=== PATIENT | male | born 1950 | race Caucasian/White ===

== ENCOUNTER 2018-04-06 06:13 | Emergency (ER) | payer MEDICARE ==
[2018-04-06] MEDS ORDERED: SODIUM CHLORIDE 0.9% 1,000 ML IV STA (06:42)
[2018-04-06] MEDS ORDERED: ONDANSETRON 4 MG/2 ML VIAL IVP STA (06:42)
[2018-04-06 06:54] LABS: Basophils % (A) 0 %; Eosinophils # (A) 0.1 k/uL (0-0.7); Eosinophils % (A) 1 %; HCT 48.8 % (39.0-53.0); HGB 16.2 gm/dL (13.0-17.5); Lymphocytes # (A) 0.9 k/uL (1.0-4.8); Lymphocytes % (A) 7 %; MCH 31.6 pg (25.0-35.0); MCHC 33.1 g/dL (31.0-37.0); MCV 95.5 fL (80.0-100.0); Mean Platelet Volume 7.2; Monocytes # (A) 0.5 k/uL (0-1.0); Monocytes % (A) 4 %; Neutrophils # (A) 10.8 k/uL (1.3-7.7); Neutrophils % (A) 86 %; Platelet Count 283 k/uL (150-450); RBC 5.11 m/uL (4.30-5.90); RDW 12.8 % (11.5-15.5); WBC 12.6 k/uL (3.8-10.6)
[2018-04-06 07:07] LABS: ALT 30 U/L (21-72); AST 34 U/L (17-59); Albumin 4.4 g/dL (3.5-5.0); Alkaline Phosphatase 87 U/L (38-126); Anion Gap 18 mmol/L; Blood Urea Nitrogen 23 mg/dL (9-20); Calcium 9.5 mg/dL (8.4-10.2); Carbon Dioxide 27 mmol/L (22-30); Chloride 98 mmol/L (98-107); Glucose 162 mg/dL (74-99); Lipase 44 U/L (23-300); Sodium 143 mmol/L (137-145); Total Bilirubin 0.8 mg/dL (0.2-1.3); Total Protein 8.4 g/dL (6.3-8.2)
[2018-04-06] MEDS ORDERED: PANTOPRAZOLE 40 MG/10 ML VIAL IVP STA (07:33)
--- NOTE | 2018-04-06 07:46 | ED ---
General Adult HPI - General Chief complaint: Nausea/Vomiting/Diarrhea Stated complaint: Dehydration, vomiting Time Seen by Provider: 04/06/18 07:05 Source: patient, RN notes reviewed Mode of arrival: ambulatory Limitations: no limitations - History of Present Illness Initial comments: 67-year-old male presents for evaluation of vomiting and diarrhea. Patient states that over the past 16 hours he has had vomiting every 2 hours as well as intermittent diarrhea. Patient has been drinking Coca-Cola and has had subsequent black vomiting. Denies any blood in the vomit. Patient was recently diagnosed with sinusitis and is currently on amoxicillin which began 2 days ago. He denies any chest pain or dyspnea. Denies abdominal pain. No known sick contacts. No fever or chills. Patient does have some URI symptoms however these a been present for the past 6 weeks. - Related Data Home Medications Medication Instructions Recorded Confirmed Amoxic-Pot Clav 875-125Mg 1 tab PO BID 04/06/18 04/06/18 [Augmentin 875-125] OLANZapine [ZyPREXA] 2.5 mg PO HS 04/06/18 04/06/18 lamoTRIgine [LaMICtal] See Taper PO DAILY 04/06/18 04/06/18 Previous Rx's Medication Instructions Recorded Omeprazole [PriLOSEC] 20 mg PO AC-BID #60 cap 04/06/18 Allergies Allergy/AdvReac Type Severity Reaction Status Date / Time Iodinated Contrast- Oral and Allergy Anaphylaxis Verified 04/06/18 07:20 IV Dye [Iodinated Contrast Media - IV Dye] latex Allergy Rash/Hives Verified 04/06/18 07:20 Review of Systems ROS Statement: Those systems with pertinent positive or pertinent negative responses have been documented in the HPI. ROS Other: All systems not noted in ROS Statement are negative. Past Medical History Past Medical History: Hypertension History of Any Multi-Drug Resistant Organisms: None Reported Past Surgical History: Appendectomy Additional Past Surgical History / Comment(s): COLONOSCOPY Past Anesthesia/Blood Transfusion Reactions: No Reported Reaction Past Psychological History: Anxiety Smoking Status: Former smoker Past Alcohol Use History: Heavy Past Drug Use History: None Reported General Exam Limitations: no limitations General appearance: alert, in no apparent distress Head exam: Present: atraumatic, normocephalic Eye exam: Present: normal appearance, PERRL Neck exam: Present: normal inspection. Absent: tenderness, meningismus Respiratory exam: Present: normal lung sounds bilaterally. Absent: respiratory distress Cardiovascular Exam: Present: regular rate, normal rhythm GI/Abdominal exam: Present: soft, distended. Absent: tenderness, guarding, rebound Extremities exam: Present: normal inspection, full ROM. Absent: tenderness, normal capillary refill Neurological exam: Present: alert, oriented X3, CN II-XII intact. Absent: motor sensory deficit Psychiatric exam: Present: normal affect, normal mood Skin exam: Present: warm, dry, intact. Absent: cyanosis, diaphoretic Course Vital Signs 04/06/18 04/06/18 04/06/18 06:14 07:00 08:58 Temperature 98.7 F Pulse Rate 99 91 Respiratory 16 18 Rate Blood Pressure 142/93 170/90 132/75 O2 Sat by Pulse 98 97 Oximetry EKG Findings - EKG Comments: EKG Findings:: EKG: Normal sinus rhythm, left atrial enlargement no ST segment elevation or depression. Rate of 90, MO interval 164, QRS duration 90, QTC 472 definitive signs of ischemia. Medical Decision Making - Medical Decision Making 67-year-old male presenting with vomiting and diarrhea. There was concern for dark vomit however the patient had been drinking Coca-Cola. Hemoccult is positive however there is no melanotic stool. This may be related to gastritis. His abdomen is completely soft nontender nondistended. Vital signs are stable. Hemoglobin is stable at 16.2, mild leukocytosis at 12.6. Lactic acid normal. Lipase AST and ALT are all normal. Patient is feeling much better on reevaluation. He is eager for discharge. He will be given proton pump inhibitor and will return with any worsening or changing symptoms. - Lab Data Result diagrams: 04/06/18 06:35 04/06/18 06:35 Lab Results 04/06/18 04/06/18 04/06/18 Range/Units 06:35 06:35 06:35 WBC 12.6 H (3.8-10.6) k/uL RBC 5.11 (4.30-5.90) m/uL Hgb 16.2 (13.0-17.5) gm/dL Hct 48.8 (39.0-53.0) % MCV 95.5 (80.0-100.0) fL MCH 31.6 (25.0-35.0) pg MCHC 33.1 (31.0-37.0) g/dL RDW 12.8 (11.5-15.5) % Plt Count 283 (150-450) k/uL Neutrophils % 86 % Lymphocytes % 7 % Monocytes % 4 % Eosinophils % 1 % Basophils % 0 % Neutrophils # 10.8 H (1.3-7.7) k/uL Lymphocytes # 0.9 L (1.0-4.8) k/uL Monocytes # 0.5 (0-1.0) k/uL Eosinophils # 0.1 (0-0.7) k/uL Basophils # 0.0 (0-0.2) k/uL Sodium 143 (137-145) mmol/L Potassium 4.0 (3.5-5.1) mmol/L Chloride 98 (98-107) mmol/L Carbon Dioxide 27 (22-30) mmol/L Anion Gap 18 mmol/L BUN 23 H (9-20) mg/dL Creatinine 0.90 (0.66-1.25) mg/dL Est GFR (CKD-EPI)AfAm >90 (>60 ml/min/1.73 sqM) Est GFR (CKD-EPI)NonAf 87 (>60 ml/min/1.73 sqM) Glucose 162 H (74-99) mg/dL Plasma Lactic Acid Adelfo 1.0 (0.7-2.0) mmol/L Calcium 9.5 (8.4-10.2) mg/dL Total Bilirubin 0.8 (0.2-1.3) mg/dL AST 34 (17-59) U/L ALT 30 (21-72) U/L Alkaline Phosphatase 87 (38-126) U/L Troponin I (0.000-0.034) ng/mL Total Protein 8.4 H (6.3-8.2) g/dL Albumin 4.4 (3.5-5.0) g/dL Lipase 44 (23-300) U/L Stool Occult Blood (Negative) 04/06/18 04/06/18 Range/Units 06:35 08:29 WBC (3.8-10.6) k/uL RBC (4.30-5.90) m/uL Hgb (13.0-17.5) gm/dL Hct (39.0-53.0) % MCV (80.0-100.0) fL MCH (25.0-35.0) pg MCHC (31.0-37.0) g/dL RDW (11.5-15.5) % Plt Count (150-450) k/uL Neutrophils % % Lymphocytes % % Monocytes % % Eosinophils % % Basophils % % Neutrophils # (1.3-7.7) k/uL Lymphocytes # (1.0-4.8) k/uL Monocytes # (0-1.0) k/uL Eosinophils # (0-0.7) k/uL Basophils # (0-0.2) k/uL Sodium (137-145) mmol/L Potassium (3.5-5.1) mmol/L Chloride (98-107) mmol/L Carbon Dioxide (22-30) mmol/L Anion Gap mmol/L BUN (9-20) mg/dL Creatinine (0.66-1.25) mg/dL Est GFR (CKD-EPI)AfAm (>60 ml/min/1.73 sqM) Est GFR (CKD-EPI)NonAf (>60 ml/min/1.73 sqM) Glucose (74-99) mg/dL Plasma Lactic Acid Adelfo (0.7-2.0) mmol/L Calcium (8.4-10.2) mg/dL Total Bilirubin (0.2-1.3) mg/dL AST (17-59) U/L ALT (21-72) U/L Alkaline Phosphatase (38-126) U/L Troponin I <0.012 (0.000-0.034) ng/mL Total Protein (6.3-8.2) g/dL Albumin (3.5-5.0) g/dL Lipase (23-300) U/L Stool Occult Blood Positive (Negative) Disposition Clinical Impression: Gastroenteritis Disposition: HOME SELF-CARE Condition: Fair Instructions: Acute Nausea and Vomiting (ED) Prescriptions: Omeprazole [PriLOSEC] 20 mg PO AC-BID #60 cap Is patient prescribed a controlled substance at d/c from ED?: No Referrals: Jailene Espinoza DO [Primary Care Provider] - 1-2 days Time of Disposition: 09:31
--- NOTE | 2018-04-06 08:05 | XR ---
EXAMINATION TYPE: XR chest 2V DATE OF EXAM: 04/06/2018 COMPARISON: NONE HISTORY: Cough per order. Vomiting and diarrhea for 2 days. TECHNIQUE: Frontal and lateral views of the chest are obtained. FINDINGS: There is chronic parenchymal change without suspicious focal air space opacity, pleural ef fusion, or pneumothorax seen. The cardiac silhouette size is within normal limits. The osseous str uctures are intact. IMPRESSION: Chronic parenchymal changes without suspicious acute pulmonary process.
--- NOTE | 2018-04-06 08:06 | XR ---
EXAMINATION TYPE: XR KUB DATE OF EXAM: 04/06/2018 7:57 AM CLINICAL HISTORY: Vomiting and diarrhea for 2 days. TECHNIQUE: Two Upright KUB images of the abdomen are obtained. COMPARISON: None. FINDINGS: Scattered gas is seen in non-distended stomach and small bowel loops. Gas is seen in non-di stended colon. Scattered air-fluid levels are seen which is nonspecific finding. There is no viscerom egaly, pneumoperitoneum, or abnormal calcification appreciated. The lung bases are clear and the osse ous structures are intact. IMPRESSION: Overall nonobstructive bowel gas pattern.
[2018-04-06 09:48] VITALS: BP 129/78; PULSE 86; RESP 16; TEMP 97.7
== END 2018-04-06 09:56 | disposition home or self-care (01) ==
LOC: EC 06:13
DX: K52.9 Noninfective gastroenteritis and colitis, unspecified (principal); D72.829 Elevated white blood cell count, unspecified; R14.0 Abdominal distension (gaseous); J32.9 Chronic sinusitis, unspecified; R09.89 Other specified symptoms and signs involving the circulatory and respiratory systems; Z87.891 Personal history of nicotine dependence; Z79.899 Other long term (current) drug therapy; Z91.040 Latex allergy status; Z91.041 Radiographic dye allergy status; Z90.49 Acquired absence of other specified parts of digestive tract
CPT/HCPCS: 36415; 93005; 80053; 83605; 83690; 84484; 85025; 82272; 71046; 74018; 99284; 96374; 96375; 96361; J2405; C9113

== ENCOUNTER 2022-10-23 11:46 | Observation (INO) | payer OTHER, MEDICARE ==
[2022-10-23] MEDS ORDERED: HEPARIN SODIUM 1,000 UN/ML (10ML VL) IV ONE (12:17)
[2022-10-23] MEDS ORDERED: HEPARIN SODIUM 1,000 UN/ML (10ML VL) IV PRN (12:17)
--- NOTE | 2022-10-23 12:17 | ED ---
General Adult HPI - General Chief complaint: Arrhythmia/Palpitations Stated complaint: AFib Time Seen by Provider: 10/23/22 12:03 Source: EMS Mode of arrival: EMS Limitations: no limitations - History of Present Illness Initial comments: 72-year-old male presenting to the emergency department for palpitations. Patient saw his primary care doctor [facility] the [facility] who did her EKG and told him that he had atrial fibrillation and should be evaluated in the emergency department. She denies any active chest pain today however last week he notes about of unprovoked chest pain happened at night that lasted for a few hours which resolved on its own. He admits increased shortness of breath with exertion. He denies any cardiac history,, anticoagulant use. He denies nausea, vomiting, active chest pain, palpitations, abdominal pain. No recent sick co ntacts. - Related Data Home Medications Medication Instructions Recorded Confirmed FLUoxetine HCL [PROzac] 20 mg PO DAILY 10/23/22 10/23/22 Omeprazole [PriLOSEC] 20 mg PO DAILY 10/23/22 10/23/22 Telmisartan [Micardis] 20 mg PO DAILY 10/23/22 10/23/22 Allergies Allergy/AdvReac Type Severity Reaction Status Date / Time Iodinated Contrast Media Allergy Anaphylaxis Verified 10/23/22 13:03 [Iodinated Contrast Media - IV Dye] latex Allergy Rash/Hives Verified 10/23/22 13:03 Review of Systems ROS Statement: Those systems with pertinent positive or pertinent negative responses have been documented in the HPI. ROS Other: All systems not noted in ROS Statement are negative. Past Medical History Past Medical History: Hypertension History of Any Multi-Drug Resistant Organisms: None Reported Past Surgical History: Appendectomy Additional Past Surgical History / Comment(s): COLONOSCOPY Past Anesthesia/Blood Transfusion Reactions: No Reported Reaction Past Psychological History: Anxiety Smoking Status: Former smoker Past Alcohol Use History: Heavy Past Drug Use History: None Reported General Exam Limitations: no limitations General appearance: alert, in no apparent distress Head exam: Present: atraumatic, normocephalic, normal inspection Eye exam: Present: normal appearance, PERRL, EOMI. Absent: scleral icterus, conjunctival injection, periorbital swelling ENT exam: Present: normal exam, mucous membranes moist Neck exam: Present: normal inspection. Absent: tenderness, meningismus, lymphadenopathy Respiratory exam: Present: normal lung sounds bilaterally. Absent: respiratory distress, wheezes, rales, rhonchi, stridor Cardiovascular Exam: Present: tachycardia, irregular rhythm, normal heart sounds. Absent: regular rate, normal rhythm GI/Abdominal exam: Present: soft, normal bowel sounds. Absent: distended, tenderness, guarding, rebound, rigid Extremities exam: Present: normal inspection, full ROM, normal capillary refill. Absent: tenderness, pedal edema, joint swelling, calf tenderness Back exam: Present: normal inspection Neurological exam: Present: alert, oriented X3, CN II-XII intact Psychiatric exam: Present: normal affect, normal mood Skin exam: Present: warm, dry, intact, normal color. Absent: rash Course Vital Signs 10/23/22 10/23/22 10/23/22 11:58 12:55 14:24 Temperature 98.0 F Pulse Rate 84 100 103 H Respiratory 18 20 18 Rate Blood Pressure 126/72 115/76 116/94 O2 Sat by Pulse 96 96 98 Oximetry 10/23/22 15:31 Temperature Pulse Rate 104 H Respiratory 20 Rate Blood Pressure 117/83 O2 Sat by Pulse 97 Oximetry - Reevaluation(s) Reevaluation #1: 10/23/22 15:48 [facility] discussed with Dr. Rodriguez who agrees and accepts patient for admission. Bequest patient to be started on 25 mg of metoprolol with consult to cardiology.. EKG Findings - EKG Comments: EKG Findings:: I interpreted the following: EKG performed at 12:07. Rate 103 bpm, A-fib with RVR. QRS 93, Qt/Qtc 340/400 Medical Decision Making - Lab Data Result diagrams: 10/23/22 12:40 10/23/22 12:40 Lab Results 10/23/22 10/23/22 10/23/22 Range/Units 12:40 12:40 12:40 WBC 7.7 (3.8-10.6) k/uL RBC 4.46 (4.30-5.90) m/uL Hgb 14.8 (13.0-17.5) gm/dL Hct 41.6 (39.0-53.0) % MCV 93.2 (80.0-100.0) fL MCH 33.1 (25.0-35.0) pg MCHC 35.6 (31.0-37.0) g/dL RDW 12.2 (11.5-15.5) % Plt Count 246 (150-450) k/uL MPV 9.1 Neutrophils % 58 % Lymphocytes % 29 % Monocytes % 7 % Eosinophils % 3 % Basophils % 1 % Neutrophils # 4.5 (1.3-7.7) k/uL Lymphocytes # 2.2 (1.0-4.8) k/uL Monocytes # 0.5 (0-1.0) k/uL Eosinophils # 0.2 (0-0.7) k/uL Basophils # 0.1 (0-0.2) k/uL PT 10.8 (9.0-12.0) sec INR 1.0 (<1.2) APTT 24.2 (22.0-30.0) sec D-Dimer 0.34 (<0.60) mg/L FEU Sodium 135 L (137-145) mmol/L Potassium 4.1 (3.5-5.1) mmol/L Chloride 105 (98-107) mmol/L Carbon Dioxide 24 (22-30) mmol/L Anion Gap 6 mmol/L BUN 14 (9-20) mg/dL Creatinine 0.75 (0.66-1.25) mg/dL Est GFR (CKD-EPI)AfAm >90 (>60 ml/min/1.73 sqM) Est GFR (CKD-EPI)NonAf >90 (>60 ml/min/1.73 sqM) Glucose 119 H (74-99) mg/dL Calcium 8.1 L (8.4-10.2) mg/dL Magnesium 1.6 (1.6-2.3) mg/dL Total Bilirubin 0.7 (0.2-1.3) mg/dL AST 32 (17-59) U/L ALT 30 (4-49) U/L Alkaline Phosphatase 82 (38-126) U/L Troponin I (0.000-0.034) ng/mL Total Protein 7.1 (6.3-8.2) g/dL Albumin 3.8 (3.5-5.0) g/dL 10/23/22 Range/Units 12:40 WBC (3.8-10.6) k/uL RBC (4.30-5.90) m/uL Hgb (13.0-17.5) gm/dL Hct (39.0-53.0) % MCV (80.0-100.0) fL MCH (25.0-35.0) pg MCHC (31.0-37.0) g/dL RDW (11.5-15.5) % Plt Count (150-450) k/uL MPV Neutrophils % % Lymphocytes % % Monocytes % % Eosinophils % % Basophils % % Neutrophils # (1.3-7.7) k/uL Lymphocytes # (1.0-4.8) k/uL Monocytes # (0-1.0) k/uL Eosinophils # (0-0.7) k/uL Basophils # (0-0.2) k/uL PT (9.0-12.0) sec INR (<1.2) APTT (22.0-30.0) sec D-Dimer (<0.60) mg/L FEU Sodium (137-145) mmol/L Potassium (3.5-5.1) mmol/L Chloride (98-107) mmol/L Carbon Dioxide (22-30) mmol/L Anion Gap mmol/L BUN (9-20) mg/dL Creatinine (0.66-1.25) mg/dL Est GFR (CKD-EPI)AfAm (>60 ml/min/1.73 sqM) Est GFR (CKD-EPI)NonAf (>60 ml/min/1.73 sqM) Glucose (74-99) mg/dL Calcium (8.4-10.2) mg/dL Magnesium (1.6-2.3) mg/dL Total Bilirubin (0.2-1.3) mg/dL AST (17-59) U/L ALT (4-49) U/L Alkaline Phosphatase (38-126) U/L Troponin I <0.012 (0.000-0.034) ng/mL Total Protein (6.3-8.2) g/dL Albumin (3.5-5.0) g/dL Disposition Clinical Impression: Atrial fibrillation Disposition: ADMITTED IP TO THIS HOSP Condition: Stable Is patient prescribed a controlled substance at d/c from ED?: No Time of Disposition: 12:22
[2022-10-23] MEDS ORDERED: NALOXONE 0.4 MG/ML 1 ML VIAL IV PRN (12:46)
[2022-10-23] MEDS: HEPARIN SOD,PORK IN 0.45% NACL 25,000 UNIT in 0.45% NACL 1 250ML.BAG IV SCH (12:47)
[2022-10-23 13:11] LABS: ALT 30 U/L (4-49); AST 32 U/L (17-59); African American GFR (CKD) >90 (>60 ml/min/1.73 sqM); Albumin 3.8 g/dL (3.5-5.0); Alkaline Phosphatase 82 U/L (38-126); Anion Gap 6 mmol/L; Blood Urea Nitrogen 14 mg/dL (9-20); Calcium 8.1 mg/dL (8.4-10.2); Carbon Dioxide 24 mmol/L (22-30); Chloride 105 mmol/L (98-107); Glucose 119 mg/dL (74-99); Magnesium 1.6 mg/dL (1.6-2.3); Non-African American GFR(CKD) >90 (>60 ml/min/1.73 sqM); Potassium 4.1 mmol/L (3.5-5.1); Sodium 135 mmol/L (137-145); Total Bilirubin 0.7 mg/dL (0.2-1.3); Total Protein 7.1 g/dL (6.3-8.2)
[2022-10-23] MEDS: SODIUM CHLORIDE 0.9% 1,000 ML IV SCH (13:11)
[2022-10-23 13:13] LABS: Basophils # (A) 0.1 k/uL (0-0.2); Basophils % (A) 1 %; Eosinophils # (A) 0.2 k/uL (0-0.7); Eosinophils % (A) 3 %; HCT 41.6 % (39.0-53.0); HGB 14.8 gm/dL (13.0-17.5); Lymphocytes # (A) 2.2 k/uL (1.0-4.8); Lymphocytes % (A) 29 %; MCH 33.1 pg (25.0-35.0); MCHC 35.6 g/dL (31.0-37.0); MCV 93.2 fL (80.0-100.0); Mean Platelet Volume 9.1; Monocytes # (A) 0.5 k/uL (0-1.0); Monocytes % (A) 7 %; Neutrophils # (A) 4.5 k/uL (1.3-7.7); Neutrophils % (A) 58 %; Platelet Count 246 k/uL (150-450); RBC 4.46 m/uL (4.30-5.90); RDW 12.2 % (11.5-15.5); WBC 7.7 k/uL (3.8-10.6)
[2022-10-23 13:30] LABS: Partial Thromboplastin Time 24.2 sec (22.0-30.0); Prothrombin Time 10.8 sec (9.0-12.0)
--- NOTE | 2022-10-23 14:47 | P.CRDCN ---
History of Present Illness Consult date: 10/23/22 History of present illness: History of Present Illness: The patient is a 72-year-old male with known history of hypertension, prior history of smoking him he stopped 5 years ago who underwent his yearly physical at the [facility] today and was noted to be in atrial fibrillation and was referred to the emergency room. He denies any palpitations or knowledge of the arrhythmia. He denies any prior history of cardiac disease. A week ago he had chest discomfort at rest that he felt it was indigestion. He denies any PND, orthopnea or peripheral edema. He is limited in his physical activity and has dyspnea on exertion of moderate degree with no acute changes. He denies any dizziness or syncope. He had no prior cardiac workup. He has a history of hypertension but no diabetes and no documented hyperlipidemia. He is a nonsmoker at this time, he stopped 5 years ago. He denies any alcohol intake. In the emergency room his troponin was less than 0.012 and he was in atrial fibrillation with rapid ventricular response. Medications: Micardis 20 mg daily, Prilosec, Prozac Review of Systems: Respiratory: He has chronic dyspnea on exertion but no documented obstructive lung disease GI: No nausea or vomiting . No history of peptic ulcer disease. No recent GI bleed. : No hematuria or dysuria. Nervous System: No stroke or seizure. Physical Examination: 72-year-old male, alert and oriented no apparent distress,Blood pressure 116/90, Heart rate 104 Head: Normocephalic. Eyes: Sclerae nonicteric. Neck: Good carotid upstroke, no bruit, no jugular venous distention. Lungs: Clear to auscultation. Heart: Irregular rate and rhythm, S1-S2, no S3, no rub. Systolic ejection murmur. Abdomen: Soft nontender, positive bowel sounds no organomegaly. Extremities: No edema, intact distal pulses. Labs: Hemoglobin 14.8, potassium 4.1, BUN 14, creatinine 0.75 EKG: Atrial fibrillation with rapid ventricular response and nonspecific ST-T wave changes Impression: 1. Atrial fibrillation of unknown duration, his [id number] score is 2 2. History of hypertension 3. Chronic dyspnea 4. Episode of chest discomfort last week of unknown etiology Plan: 1. IV heparin 2. Adult Beta vin 3. Obtain an echocardiogram with Doppler 4. Serial enzymes 5. And if there is no evidence of acute coronary syndrome changed to oral anticoagulation 6. Depending on his progress further recommendations will be made Thank you for this consult we will follow with you Past Medical History Past Medical History: Hypertension History of Any Multi-Drug Resistant Organisms: None Reported Past Surgical History: Appendectomy Additional Past Surgical History / Comment(s): COLONOSCOPY Past Anesthesia/Blood Transfusion Reactions: No Reported Reaction Past Psychological History: Anxiety Smoking Status: Former smoker Past Alcohol Use History: Heavy Past Drug Use History: None Reported Medications and Allergies Home Medications Medication Instructions Recorded Confirmed Type FLUoxetine HCL [PROzac] 20 mg PO DAILY 10/23/22 10/23/22 History Omeprazole [PriLOSEC] 20 mg PO DAILY 10/23/22 10/23/22 History Telmisartan [Micardis] 20 mg PO DAILY 10/23/22 10/23/22 History Allergies Allergy/AdvReac Type Severity Reaction Status Date / Time Iodinated Contrast Media Allergy Anaphylaxis Verified 10/23/22 13:03 [Iodinated Contrast Media - IV Dye] latex Allergy Rash/Hives Verified 10/23/22 13:03 Physical Exam Vitals: Vital Signs Temp Pulse Resp BP Pulse Ox 10/23/22 14:24 103 H 18 116/94 98 10/23/22 12:55 100 20 115/76 96 10/23/22 11:58 98.0 F 84 18 126/72 96 Intake and Output 10/22/22 10/23/22 10/23/22 22:59 06:59 14:59 Other: Weight 88.451 kg Results 10/23/22 12:40 10/23/22 12:40 Cardiac Enzymes 10/23/22 10/23/22 Range/Units 12:40 12:40 AST 32 (17-59) U/L Troponin I <0.012 (0.000-0.034) ng/mL Coagulation 10/23/22 Range/Units 12:40 PT 10.8 (9.0-12.0) sec APTT 24.2 (22.0-30.0) sec CBC 10/23/22 Range/Units 12:40 WBC 7.7 (3.8-10.6) k/uL RBC 4.46 (4.30-5.90) m/uL Hgb 14.8 (13.0-17.5) gm/dL Hct 41.6 (39.0-53.0) % Plt Count 246 (150-450) k/uL Comprehensive Metabolic Panel 10/23/22 Range/Units 12:40 Sodium 135 L (137-145) mmol/L Potassium 4.1 (3.5-5.1) mmol/L Chloride 105 (98-107) mmol/L Carbon Dioxide 24 (22-30) mmol/L BUN 14 (9-20) mg/dL Creatinine 0.75 (0.66-1.25) mg/dL Glucose 119 H (74-99) mg/dL Calcium 8.1 L (8.4-10.2) mg/dL AST 32 (17-59) U/L ALT 30 (4-49) U/L Alkaline Phosphatase 82 (38-126) U/L Total Protein 7.1 (6.3-8.2) g/dL Albumin 3.8 (3.5-5.0) g/dL Current Medications Generic Name Dose Route Start Last Admin Trade Name Freq PRN Reason Stop Dose Admin Heparin Sodium (Porcine) 0 unit 10/23/22 12:17 Heparin Sodium 1,000 Un/Ml (10ml Vl) IV PER PROTOCOL PRN Low PTT Protocol Heparin Sodium/Sodium Chloride 250 mls @ 10 mls/hr 10/23/22 12:30 10/23/22 12:47 25,000 unit/ Sodium Chloride IV 11.306 units/kg/hr .Q24H FERMIN 10 mls/hr Administration Protocol 11.306 UNITS/KG/HR Sodium Chloride 1,000 mls @ 75 mls/hr 10/23/22 13:00 10/23/22 13:11 Saline 0.9% IV 75 mls/hr .[id number] FERMIN Administration Naloxone HCl 0.2 mg 10/23/22 12:46 Naloxone 0.4 Mg/Ml 1 Ml Vial IV Q2M PRN Opioid Reversal Intake and Output 10/22/22 10/23/22 10/23/22 22:59 06:59 14:59 Other: Weight 88.451 kg Patient Weight 10/24/22 06:59 Weight 88.451 kg 10/23/22 12:40 10/23/22 12:40
--- NOTE | 2022-10-23 15:22 | XR ---
EXAMINATION TYPE: XR chest 2V DATE OF EXAM: 10/23/2022 COMPARISON: 04/06/2018 TECHNIQUE: PA and lateral views submitted. HISTORY: Dysrhythmia FINDINGS: The lungs are clear and there is no pneumothorax, pleural effusion, or focal pneumonia. Heart enlar ged and there is coarsened interstitium and hyperinflation. Hypertrophic changes in the spine. Cannot exclude a 6 mm left upper lobe nodule. IMPRESSION: 1. No acute process. Correlate for COPD and chronic interstitial lung disease. Cannot exclude a 6 mm left upper lobe pulmonary nodule.
[2022-10-23] MEDS: METOPROLOL TARTRATE 25 MG TAB PO SCH ×2 (15:29→20:50)
[2022-10-23] MEDS: METOPROLOL SUCCINATE (ER) 25 MG TAB.ER.24H PO STA ×2 (17:07→17:09)
[2022-10-24 06:42] LABS: Basophils # (A) 0.1 k/uL (0-0.2); Basophils % (A) 1 %; Eosinophils # (A) 0.2 k/uL (0-0.7); Eosinophils % (A) 3 %; HCT 42.9 % (39.0-53.0); HGB 14.5 gm/dL (13.0-17.5); Lymphocytes # (A) 2.9 k/uL (1.0-4.8); Lymphocytes % (A) 36 %; MCH 32.5 pg (25.0-35.0); MCHC 33.7 g/dL (31.0-37.0); MCV 96.3 fL (80.0-100.0); Mean Platelet Volume 9.5; Monocytes # (A) 0.6 k/uL (0-1.0); Monocytes % (A) 7 %; Neutrophils # (A) 4.2 k/uL (1.3-7.7); Neutrophils % (A) 51 %; Platelet Count 237 k/uL (150-450); RBC 4.45 m/uL (4.30-5.90); RDW 12.6 % (11.5-15.5); WBC 8.3 k/uL (3.8-10.6)
[2022-10-24 07:03] LABS: African American GFR (CKD) >90 (>60 ml/min/1.73 sqM); Anion Gap 5 mmol/L; Blood Urea Nitrogen 17 mg/dL (9-20); Calcium 8.2 mg/dL (8.4-10.2); Carbon Dioxide 30 mmol/L (22-30); Chloride 105 mmol/L (98-107); Glucose 107 mg/dL (74-99); Non-African American GFR(CKD) 78 (>60 ml/min/1.73 sqM); Potassium 4.4 mmol/L (3.5-5.1); Sodium 140 mmol/L (137-145)
[2022-10-24 07:24] LABS: INR 1.1 (<1.2); Partial Thromboplastin Time 52.8 sec (22.0-30.0); Prothrombin Time 11.1 sec (9.0-12.0)
[2022-10-24] MEDS: SODIUM CHLORIDE 0.9% 1,000 ML IV SCH ×2 (08:12→20:19)
[2022-10-24] MEDS: METOPROLOL TARTRATE 25 MG TAB PO SCH ×2 (08:12→20:14)
[2022-10-24 12:22] LABS: Chol/HDL Ratio 4.47 Ratio; LDL Cholesterol,Calculated 61.1 mg/dL (0.0-131.0)
[2022-10-24] MEDS ORDERED: Magnesium Replacement Protocol 1 EACH MISC MISCELLANE PRN (14:53)
[2022-10-24] MEDS: HEPARIN SOD,PORK IN 0.45% NACL 25,000 UNIT in 0.45% NACL 1 250ML.BAG IV SCH (15:01)
--- NOTE | 2022-10-24 15:18 | P.HPIM ---
History of Present Illness H&P Date: 10/24/22 Chief Complaint: Ariel. michele with RVR, new onset This is a 72-year-old gentleman with past medical history of hypertension, anxiety, former nicotine dependence, quit smoking 5 years ago, was [facility], A. michele with RVR picked up on EKG and patient was referred to the ER. He reports he was asymptomatic with the exception of having indigestion the night before in spite of taking his PPI. Denies any recent illness. Heparin drip initiated. EKG in the ER reported atrial fibrillation with RVR, troponins negative 3. Hemoglobin 14.8, potassium 4.1, renal function stable ,Magnesium 1.6, replacement protocol ordered. Lipid panel pending. Chest x-ray reported no acute process. Review of Systems ROS Statement: Those systems with pertinent positive or pertinent negative responses have been documented in the HPI. ROS Other: All systems not noted in ROS Statement are negative. Past Medical History Past Medical History: Hypertension History of Any Multi-Drug Resistant Organisms: None Reported Past Surgical History: Appendectomy Additional Past Surgical History / Comment(s): COLONOSCOPY Past Anesthesia/Blood Transfusion Reactions: No Reported Reaction Past Psychological History: Anxiety Smoking Status: Former smoker Past Alcohol Use History: Heavy Past Drug Use History: None Reported Medications and Allergies Home Medications Medication Instructions Recorded Confirmed Type FLUoxetine HCL [PROzac] 20 mg PO DAILY 10/23/22 10/23/22 History Omeprazole [PriLOSEC] 20 mg PO DAILY 10/23/22 10/23/22 History Telmisartan [Micardis] 20 mg PO DAILY 10/23/22 10/23/22 History Allergies Allergy/AdvReac Type Severity Reaction Status Date / Time Iodinated Contrast Media Allergy Anaphylaxis Verified 10/23/22 13:03 [Iodinated Contrast Media - IV Dye] latex Allergy Rash/Hives Verified 10/23/22 13:03 Physical Exam Vitals: Vital Signs Temp Pulse Pulse Resp BP BP Pulse Ox 10/24/22 12:00 97.8 F 86 18 107/69 97 10/24/22 09:10 97.9 F 85 18 118/72 97 10/24/22 08:09 98.0 F 75 18 111/83 98 10/24/22 04:00 98 F 93 16 102/59 95 10/24/22 00:00 98 F 84 19 114/82 95 10/23/22 20:00 98.4 F 85 24 98/81 95 10/23/22 18:26 94 18 112/72 98 10/23/22 17:10 100 18 128/94 10/23/22 15:31 104 H 20 117/83 97 10/23/22 14:24 103 H 18 116/94 98 Intake and Output 10/23/22 10/24/22 10/24/22 22:59 06:59 14:59 Intake Total 874.5 118 Output Total 325 Balance 549.5 118 Intake: Intake, IV Titration 874.5 Amount Heparin Sod,Pork in 0.45% 124.5 NaCl 25,000 unit In 0.45 % NaCl 1 250ml.bag @ 11. 306 UNITS/KG/HR 10 mls/hr IV .Q24H [facility] Rx#: [id number] Sodium Chloride 0.9% 1, 750 000 ml @ 75 mls/hr IV . [id number] [facility] Rx#:[id number] Oral 118 Output: Urine 325 Other: Voiding Method Toilet PHYSICAL EXAM: VITAL SIGNS: As above GENERAL: Sitting up in bed, no acute distress HEENT: Conjunctivae normal. eyes normal. NECK: Supple, No JVD. No thyroid enlargement. No LNs CARDIOVASCULAR: S1, S2 regular. Irregular, tachycardic, Systolic murmur RESPIRATION: Breath sounds diminished in the bases. No rhonchi or crackles. No bronchial breathing. ABDOMEN: Soft, nontender . No guarding. no masses palpable. No ascites, No hepatosplenomegaly.Bowel sounds heard. LEGS: No edema. no swelling PSYCHIATRY: Alert and oriented X3, mood and affect normal. NERVOUS SYSTEM: Cranial N 2-12 grossly normal. No focal deficits. Strength and sensation grossly intact.. Skin: Warm and dry, no rash Results CBC & Chem 7: 10/24/22 05:31 10/24/22 05:31 Labs: Abnormal Lab Results - Last 24 Hours (Table) 10/23/22 10/24/22 10/24/22 Range/Units 23:38 05:31 05:31 APTT 33.5 H (22.0-30.0) sec Glucose 107 H (74-99) mg/dL Calcium 8.2 L (8.4-10.2) mg/dL HDL Cholesterol 25.50 L (40.00-60.00) mg/dL 10/24/22 Range/Units 05:31 APTT 52.8 H (22.0-30.0) sec Glucose (74-99) mg/dL Calcium (8.4-10.2) mg/dL HDL Cholesterol (40.00-60.00) mg/dL Assessment and Plan Assessment: New onset A. fib with RVR, in a patient reporting " indigestion not responding to his PPI the night prior" Hypertension Gastroesophageal reflux disease Prior nicotine dependence, quit 5 years ago Plan: Continue on current medication regime ,monitoring and symptomatic treatment. Echo pending. Anticoagulated on heparin drip. Evaluated by cardiology with recommendations noted and appreciated. The impression and plan of care has been dictated as directed. : I performed a history and examination of this patient, discussed the same with the dictator. I agree with the dictator's note ,documented as a scribe. Any additional findings or plans will be noted.
[2022-10-24] MEDS: APIXABAN 5 MG TAB PO SCH (15:45)
[2022-10-24] MEDS: PANTOPRAZOLE 40 MG/10 ML VIAL IVP SCH (15:46)
--- NOTE | 2022-10-24 17:11 | CA ---
Transthoracic Echo Report Name: Wei Vaz Age: 72 Gender: M : 1950 Exam Date: 10/24/2022 12:25 Exam Location: [facility] Ht (in): 69 Wt (lb): 195 Ordering Physician: Mahad Flores MD ([id number]) Attending/Referring Phys: Drawbench Operator Helper Ute Carrillo RDCS Procedure CPT: Indications: afib Cardiac Hx: Technical Quality: Contrast 1: Total Dose (mL): Contrast 2: Total Dose (mL): MEASUREMENTS (Male / Female) Normal Values 2D ECHO LV Diastolic Diameter PLAX 4.5 cm 4.2 - 5.9 / 3.9 - 5.3 cm LV Systolic Diameter PLAX 3.3 cm IVS Diastolic Thickness 0.9 cm 0.6 - 1.0 / 0.6 - 0.9 cm LVPW Diastolic Thickness 1.2 cm 0.6 - 1.0 / 0.6 - 0.9 cm LV Relative Wall Thickness 0.5 RV Internal Dim ED PLAX 2.8 cm M-MODE Aortic Root Diameter MM 3.2 cm LA Systolic Diameter MM 3.8 cm LA Ao Ratio MM 1.2 MV E Point Septal Separation 0.3 cm AV Cusp Separation MM 1.7 cm FINDINGS Left Ventricle Left ventricular ejection fraction is estimated at 55%. Left ventricular cavity size normal. Right Ventricle Normal right ventricular size and function. Right ventricular systolic pressure within normal limits. Right Atrium Normal right atrial size. Left Atrium Normal left atrial size. Mitral Valve Structurally normal mitral valve. Mild mitral regurgitation. Aortic Valve Trileaflet aortic valve. Mild aortic regurgitation. Tricuspid Valve Structurally normal tricuspid valve. Mild tricuspid regurgitation. Pulmonic Valve Structurally normal pulmonic valve. Pericardium Small pericardial effusion. Aorta Normal size aortic root and proximal ascending aorta. CONCLUSIONS Normal LV systolic function Mild mitral regurgitation Anteroseptal hypokinesis Previewed by: Dr. Jonathan Medina MD (Electronically Signed) Final Date: 24 October 2022 17:10
--- NOTE | 2022-10-24 18:52 | P.PN ---
Subjective Progress Note Date: 10/24/22 PROGRESS NOTE The patient is a 72-year-old male with known history of hypertension, prior history of smoking him he stopped 5 years ago who underwent his yearly physical at the [place] today and was noted to be in atrial fibrillation and was referred to the emergency room. He denies any palpitations or knowledge of the arrhythmia. He denies any prior history of cardiac disease. A week ago he had chest dis comfort at rest that he felt it was indigestion. He denies any PND, orthopnea or peripheral edema. He is limited in his physical activity and has dyspnea on exertion of moderate degree with no acute changes. He denies any dizziness or syncope. He had no prior cardiac workup. He has a history of hypertension but no diabetes and no documented hyperlipidemia. He is a nonsmoker at this time, he stopped 5 years ago. He denies any alcohol intake. In the emergency room his troponin was less than 0.012 and he was in atrial fibrillation with rapid ventricular response. October 24 The patient is feeling well this morning, he continues to be in atrial fibrillation with controlled ventricular response. He denies any chest discomfort, dizziness or palpitations. His breathing is stable. He denies any nausea or vomiting, his echocardiogram showed a normal systolic function with mild mitral regurgitation. It was reported that he has anteroseptal hypokinesis. The patient has no prior documented history of CAD. Medications: Lopressor 25 mg twice daily,Eliquis 5 mg twice a day PHYSICAL EXAMINATION: Blood pressure 130/70 heart rate 80 LUNGS: Clear to auscultation HEART: Irregular rate and rhythm, S1, S2. No S3. systolic ejection murmur ABDOMEN: Soft, nontender, no organomegaly EXTREMETIES: No edema LAB: Potassium 4.4, BUN 17, creatinine 0.6 IMPRESSION: 1. Atrial fibrillation of unknown duration 2. Hypertension 3. Chronic dyspnea on exertion 4. Prior history of chest discomfort with no evidence of acute myocardial infarction PLAN: 1. Continue present therapy 2. Increase physical activity 3. If stable probable discharge home tomorrow 4. Depending on his progress further recommendations will be made Objective - Vital Signs Vital signs: Vital Signs Temp 97.8 F 10/24/22 15:52 Pulse 87 10/24/22 15:52 Resp 18 10/24/22 15:52 BP 130/79 10/24/22 15:52 Pulse Ox 96 10/24/22 15:52 FiO2 Intake & Output 10/23/22 10/24/22 10/24/22 18:59 06:59 18:59 Intake Total 874.5 361.5 Output Total 325 Balance 549.5 361.5 Weight 88.451 kg Intake: Intake, IV Titration 874.5 125.5 Amount Heparin Sod,Pork in 0.45% 124.5 125.5 NaCl 25,000 unit In 0.45 % NaCl 1 250ml.bag @ 11. 306 UNITS/KG/HR 10 mls/hr IV .Q24H [facility] Rx#: [id number] Sodium Chloride 0.9% 1, 750 000 ml @ 75 mls/hr IV . [id number] [facility] Rx#:[id number] Oral 236 Output: Urine 325 Other: Voiding Method Toilet - Labs CBC & Chem 7: 10/24/22 05:31 10/24/22 05:31 Labs: Abnormal Lab Results - Last 24 Hours (Table) 10/23/22 10/24/22 10/24/22 Range/Units 23:38 05:31 05:31 APTT 33.5 H (22.0-30.0) sec Glucose 107 H (74-99) mg/dL Calcium 8.2 L (8.4-10.2) mg/dL HDL Cholesterol 25.50 L (40.00-60.00) mg/dL 10/24/22 Range/Units 05:31 APTT 52.8 H (22.0-30.0) sec Glucose (74-99) mg/dL Calcium (8.4-10.2) mg/dL HDL Cholesterol (40.00-60.00) mg/dL
[2022-10-25] MEDS: SODIUM CHLORIDE 0.9% 1,000 ML IV SCH (06:51)
[2022-10-25] MEDS: PANTOPRAZOLE 40 MG/10 ML VIAL IVP SCH (08:50)
[2022-10-25] MEDS: APIXABAN 5 MG TAB PO SCH (08:50)
[2022-10-25] MEDS: METOPROLOL TARTRATE 25 MG TAB PO SCH (08:50)
[2022-10-25] MEDS ORDERED: FLUoxetine HCL 20 MG CAP PO SCH (09:00)
[2022-10-25 13:05] VITALS: BP 130/70; PULSE 80; RESP 16; TEMP 98
--- NOTE | 2022-10-25 13:38 | P.PN ---
Subjective Progress Note Date: 10/25/22 PROGRESS NOTE The patient is a 72-year-old male with known history of hypertension, prior history of smoking him he stopped 5 years ago who underwent his yearly physical at the [facility] today and was noted to be in atrial fibrillation and was referred to the emergency room. He denies any palpitations or knowledge of the arrhythmia. He denies any prior history of cardiac disease. A week ago he had chest dis comfort at rest that he felt it was indigestion. He denies any PND, orthopnea or peripheral edema. He is limited in his physical activity and has dyspnea on exertion of moderate degree with no acute changes. He denies any dizziness or syncope. He had no prior cardiac workup. He has a history of hypertension but no diabetes and no documented hyperlipidemia. He is a nonsmoker at this time, he stopped 5 years ago. He denies any alcohol intake. In the emergency room his troponin was less than 0.012 and he was in atrial fibrillation with rapid ventricular response. October 24 The patient is feeling well this morning, he continues to be in atrial fibrillation with controlled ventricular response. He denies any chest discomfort, dizziness or palpitations. His breathing is stable. He denies any nausea or vomiting, his echocardiogram showed a normal systolic function with mild mitral regurgitation. It was reported that he has anteroseptal hypokinesis. The patient has no prior documented history of CAD. October 25: The patient is feeling better today, his breathing is stable, he denies any chest pain him a dizziness or palpitation. He is ambulating. He continues to be in atrial fibrillation with controlled ventricular response. He has no nausea or vomiting. Medications: Lopressor 25 mg twice daily,Eliquis 5 mg twice a day PHYSICAL EXAMINATION: Blood pressure 130/70 heart rate 80 LUNGS: Clear to auscultation HEART: Irregular rate and rhythm, S1, S2. No S3. systolic ejection murmur ABDOMEN: Soft, nontender, no organomegaly EXTREMETIES: No edema LAB: Magnesium 1.8 IMPRESSION: 1. Atrial fibrillation of unknown duration 2. Hypertension 3. Chronic dyspnea on exertion 4. Prior history of chest discomfort with no evidence of acute myocardial infarction PLAN: 1. Continue present therapy 2. Increase physical activity 3. Probable discharged home today 4. Follow-up in one to 2 weeks for further evaluation Objective - Vital Signs Vital signs: Vital Signs Temp 98.0 F 10/25/22 12:00 Pulse 80 12/17/22 12:00 Resp 16 10/25/22 12:00 BP 130/70 10/25/22 12:00 Pulse Ox 95 10/25/22 12:00 FiO2 Intake & Output 10/24/22 10/25/22 10/25/22 18:59 06:59 18:59 Intake Total 361.5 Balance 361.5 Intake: Intake, IV Titration 125.5 Amount Heparin Sod,Pork in 0.45% 125.5 NaCl 25,000 unit In 0.45 % NaCl 1 250ml.bag @ 11. 306 UNITS/KG/HR 10 mls/hr IV .Q24H [facility] Rx#: [id number] Oral 236 Other: Voiding Method Toilet Toilet Toilet # Voids 1 2 - Labs CBC & Chem 7: 10/24/22 05:31 10/24/22 05:31
[2022-10-25 14:57] LABS: Calcium 8.4 mg/dL (8.4-10.2); Potassium 4.1 mmol/L (3.5-5.1)
[2022-10-26] MEDS ORDERED: PANTOPRAZOLE 40 MG TABLET PO SCH (07:30)
--- NOTE | 2022-10-26 14:44 | P.DS ---
Providers Date of admission: 10/23/22 12:47 Attending physician: Hernesto Rodriguez MD Consults: 10/23/22 12:46 Consult Physician Routine Consulting Provider: Mahad Flores Consult Reason/Comments: new onset a-fib rvr Do you want consulting provider notified?: Yes Primary care physician: Elham Rodriguez Hospital Course: Final Diagnosis New onset A. fib with RVR currently rated controlled on beta vin Hypertension Gastroesophageal reflux disease Prior nicotine dependence, quit 5 years ago Full Code Discharge Disposition Patient is stable for discharge home. Recommended to follow up with cardiology outpatient in 1 to 2 weeks. Patient also recommended to follow up with his primary provider Dr. Rodriguez in 1 to 2 days. He has been started on metoprolol 25 mg PO BID and is anticoagulated with eliquis. Cleared for discharge on all other same home medications. Hospital Course This is a 72 year old male who follows with Dr. Rodriguez, he is admitted to the hospital for new onset atrial fibrillation with rapid ventricular rate. He has medical history of hypertension, gastroesophageal reflux disease maintained on PPI, prior nicotine use quit 5 years ago. He presents with complaints of indigestion that was not responding to his PPI. He was found to be in atrial fibrillation. Troponin level negative x 3, he had mild hyponatremia 135 on admission. He had echocardiogram completed showing normal LV systolic function, mild mitral regurgitation. He has been transitioned off the heparin gtt and started on eliquis 5 mg twice a day for anticoagulation. Continues in atrial fibrillation heart rate is now controlled in the 70-80s. Blood pressure stable at 133/77. Labs from yesterday reveal unremarkable hematology panel and also chemistry panel with the exception of glucose 107 and calcium 8.2. Lipid panel reveals triglyceride level of 137, cholesterol 114, LDL 61 and HDL of 25.5. TSH 3.490. Patient should be able to DC home today. He has been started on metoprolol 25 mg twice a day as well as eliquis. 10/25/2022 Patient evaluated today sitting up in chair. No acute events overnight. He continues in atrial fibrillation with controlled ventricular rate. Denies shortness of breath, no chest pain, no palpitations. Lungs are clear, S1 S2 auscultated irregular rhythm, heart rate in the 80s. He has been started on metoprolol and is being anticoagulated with eliquis. Focal neurological exam is negative, alert x 3. Blood pressure 130/70. Sodium 136, BUN 16, creatinine 1.09. Cleared for DC. Please see medication reconciliation for list of current medications. Thank you for allowing us to participate in the care of this patient. The impression and plan of care has been dictated by Jo Garcia, Nurse Practitioner as directed. Dr. Marci MD I have performed a history and physical examination and medical decision making of this patient, discussed the same with the dictator, and agree with the dictators assessment and plan as written, documented as a scribe. Based on total visit time, I have performed more than 50% of this visit. Patient Condition at Discharge: Stable Plan - Discharge Summary New Discharge Prescriptions: New Apixaban [Eliquis] 5 mg PO BID #60 tab Metoprolol Tartrate [Lopressor] 25 mg PO BID #60 tab Continue Telmisartan [Micardis] 20 mg PO DAILY FLUoxetine HCL [PROzac] 20 mg PO DAILY Omeprazole [PriLOSEC] 20 mg PO DAILY Discharge Medication List FLUoxetine HCL [PROzac] 20 mg PO DAILY 10/23/22 [History] Omeprazole [PriLOSEC] 20 mg PO DAILY 10/23/22 [History] Telmisartan [Micardis] 20 mg PO DAILY 10/23/22 [History] Apixaban [Eliquis] 5 mg PO BID #60 tab 10/25/22 [Rx] Metoprolol Tartrate [Lopressor] 25 mg PO BID #60 tab 10/25/22 [Rx] Follow up Appointment(s)/Referral(s): Elham Rodriguez DO [Primary Care Provider] - 1-2 days (Please call to schedule follow up appointment Thursday) Mahad Flores MD [STAFF PHYSICIAN] - 1 Week (Please call to schedule follow up appointment Thursday) Patient Instructions/Handouts: A-fib (Atrial Fibrillation) (IP) Discharge Disposition: HOME SELF-CARE
== END 2022-10-25 15:35 | disposition home or self-care (01) ==
LOC: EC 11:46 → 3SCARD 12:47
PROVIDERS: ADMIT Family Medicine; ATTEND Family Medicine
DX: I48.91 Unspecified atrial fibrillation (principal); K21.9 Gastro-esophageal reflux disease without esophagitis; I10 Essential (primary) hypertension; F41.9 Anxiety disorder, unspecified; Z87.891 Personal history of nicotine dependence; Z79.01 Long term (current) use of anticoagulants; Z79.899 Other long term (current) drug therapy; Z91.040 Latex allergy status
CPT/HCPCS: 96375; 96376 ×2; 96374; 99285; 36415; 93005; 93306; 85379; 80061; 80053; 80048 ×2; 84443; 83735 ×2; 84484; 85025 ×2; 85610 ×2; 85730 ×2; 71046; G0378 ×3; J1644 ×3; C9113 ×2

== ENCOUNTER → 2023-07-07 | Outpatient (CLI) | payer MEDICARE ==
--- NOTE | 2023-07-08 07:27 | CA ---
Transthoracic Echo Report Name: Wei Vaz Age: 73 Gender: M : 1950 Exam Date: 07/07/2023 14:08 Exam Location: [facility] Ht (in): 69 Wt (lb): 200 Ordering Physician: Elham Rodriguez DO Attending/Referring Phys: Elham Rodriguez DO [employer] Sorter Viola Milner RDCS Procedure CPT: Indications: R06.02 SHORTNESS OF BREATH Cardiac Hx: Technical Quality: Good Contrast 1: Total Dose (mL): Contrast 2: Total Dose (mL): MEASUREMENTS (Male / Female) Normal Values 2D ECHO LV Diastolic Diameter PLAX 3.8 cm 4.2 - 5.9 / 3.9 - 5.3 cm LV Systolic Diameter PLAX 3.1 cm IVS Diastolic Thickness 0.9 cm 0.6 - 1.0 / 0.6 - 0.9 cm LVPW Diastolic Thickness 1.1 cm 0.6 - 1.0 / 0.6 - 0.9 cm LV Relative Wall Thickness 0.5 RV Internal Dim ED PLAX 3.2 cm LA Systolic Diameter LX 3.8 cm 3.0 - 4.0 / 2.7 - 3.8 cm LV Diastolic Volume MOD 4C 92.0 cm??? LV Systolic Volume MOD 4C 52.6 cm??? LV Ejection Fraction MOD 4C 42.8 % LV Cardiac Index MOD 4C 1948.6 cm???/min???m??? LV Diastolic Length 4C 7.4 cm LV Systolic Length 4C 6.7 cm LV Diastolic Volume MOD 2C 90.6 cm??? LV Systolic Volume MOD 2C 47.9 cm??? LV Ejection Fraction MOD 2C 47.2 % LV Cardiac Index MOD 2C 2112.7 cm???/min???m??? LV Diastolic Length 2C 7.6 cm LV Systolic Length 2C 6.5 cm LA Volume 62.5 cm??? 18 - 58 / 22 - 52 cm??? M-MODE Aortic Root Diameter MM 3.5 cm MV E Point Septal Separation 0.4 cm AV Cusp Separation MM 1.3 cm DOPPLER AV Peak Velocity 125.0 cm/s AV Peak Gradient 6.3 mmHg AI Peak Velocity 337.0 cm/s AI Peak Gradient 45.4 mmHg AI Pressure Half Time 955.6 ms MV Area PHT 5.4 cm??? MV Deceleration Time 165.4 ms TR Peak Velocity 231.5 cm/s TR Peak Gradient 21.4 mmHg Right Ventricular Systolic Press 25.1 mmHg FINDINGS Left Ventricle Left ventricular ejection fraction is estimated at 40-45 %. Small left ventricular cavity. Left ventricular wall thickness normal. Normal left ventricular wall motion. Right Ventricle Normal right ventricular size. Right ventricular systolic pressure within normal limits. Mildly reduced right ventricular global systolic function. Right Atrium Normal right atrial size. Left Atrium Mildly increased left atrial volume. Mildly increased left atrial area. Mitral Valve Structurally normal mitral valve. Mitral annular calcification. Mild mitral regurgitation. Aortic Valve Trileaflet aortic valve. Aortic valve sclerosis. Mild aortic regurgitation. Tricuspid Valve Structurally normal tricuspid valve. Mild tricuspid regurgitation. Pulmonic Valve Pulmonic valve not well visualized. No pulmonic regurgitation. Pericardium No pericardial effusion. Aorta Normal size aortic root and proximal ascending aorta. CONCLUSIONS Mildly impaired LV function. The EF is 40-45% Mild aortic regurgitation Mild mitral regurgitation Previewed by: Dr. Blaise Hill MD (Electronically Signed) Final Date: 08 July 2023 07:27
== END | disposition home or self-care (01) ==
LOC: RADECHMAIN 14:05
PROVIDERS: ATTEND Family Medicine
DX: I08.0 Rheumatic disorders of both mitral and aortic valves (principal); R06.02 Shortness of breath
CPT/HCPCS: 93306

== ENCOUNTER → 2023-12-29 | Outpatient (CLI) | payer MEDICARE ==
[2023-12-29 16:48] LABS: HCT 46.3 % (39.6-50.0); HGB 15.1 g/dL (13.0-17.0); MCH 32.7 pg (27.0-32.0); MCHC 32.6 g/dL (32.0-37.0); MCV 100.2 FL (80.0-97.0); Mean Platelet Volume 11.4 FL (9.5-12.2); NRBC Per 100 WBC 0 X 10*3/uL (0.00-0.01); Platelet Count 296 X 10*3/uL (140-440); RBC 4.62 X 10*6/uL (4.40-5.60); RDW 12.5 % (11.5-14.5); WBC 13.82 X 10*3/uL (4.50-10.00)
[2023-12-29 16:54] LABS: Blood Urea Nitrogen 26.7 mg/dL (9.0-27.0); Carbon Dioxide 30.5 mmol/L (21.6-31.8); Chloride 99 mmol/L (96-109); Potassium 4.4 mmol/L (3.5-5.5); Sodium 141 mmol/L (135-145)
== END | disposition home or self-care (01) ==
LOC: LABPAT 11:48
PROVIDERS: ATTEND Internal Medicine Clinical Cardiac Electrophysiology
DX: Z01.812 Encounter for preprocedural laboratory examination (principal); I42.9 Cardiomyopathy, unspecified; I48.19 Other persistent atrial fibrillation; I50.9 Heart failure, unspecified
CPT/HCPCS: 36415; 80051; 82565; 84520; 85027

== ENCOUNTER 2023-12-31 09:56 | Day surgery (SDC) | payer MEDICARE ==
[2023-12-31] MEDS: SODIUM CHLORIDE 0.9% 1,000 ML IV SCH (10:40)
[2023-12-31 11:02] LABS: ALT 42 U/L (4-49); AST 36 U/L (17-59); Magnesium 1.9 mg/dL (1.6-2.3)
[2023-12-31] MEDS ORDERED: SUCCINYLCHOLINE CHLORIDE 200 MG/10 ML VIAL IV ONE (11:25)
[2023-12-31] MEDS ORDERED: fentaNYL (PF) 50 MCG/ML 2 ML AMP ONE (11:25)
[2023-12-31] MEDS ORDERED: diphenhydrAMINE 50 MG/ML 1 ML VIAL ONE (11:25)
[2023-12-31] MEDS ORDERED: LIDOCAINE 1% INJ 10MG/ML (20 ML MDV) ONE ×2 (11:25→11:44)
[2023-12-31] MEDS ORDERED: PROPOFOL 10 MG/ML 20 ML VIAL IV ONE (11:25)
[2023-12-31] MEDS ORDERED: PHENYLEPHRINE 10 MG/ML VIAL ONE (11:25)
[2023-12-31] MEDS ORDERED: MIDAZOLAM 2 MG/2 ML VIAL ONE (11:25)
[2023-12-31] MEDS ORDERED: DEXAMETHASONE SOD PHOSPHATE 10 MG/ML 1 ML VIAL ONE (11:25)
[2023-12-31] MEDS ORDERED: HYDROCORTISONE SUCCINATE 100 MG/2 ML VIAL ONE (11:25)
[2023-12-31] MEDS ORDERED: HEPARIN SODIUM,PORCINE 10,000 UNIT/ML 1 ML VIAL ONE (11:25)
--- NOTE | 2023-12-31 11:59 | P.HPCAR ---
History of Present Illness This is Dr. Stroud dictating an H/P on this patient The patient was interviewed and examined IMPRESSION / ASSESSMENT: Persistent atrial fibrillation, symptomatic Dilated cardiomyopathy ejection fraction 45% Coronary artery disease with coronary calcification Stress test did not show any evidence for ischemia Mild left atrial enlargement based on echo report PLAN: A-fib ablation Patient's rash was actually a sunburn in the upper part of the face. This does not appear to be an allergy to any medications I will restart Entresto in the hospital I do not see rosuvastatin on his list either and I will restart this Baby aspirin 81 mg p.o. daily HPI Patient continues to have dizzy spells and shortness of breath on exertion He complains of tiredness and fatigue No syncope recently no chest discomfort no anginal-like symptoms ROS: No fever chills or rigors, no cough, phlegm or expectoration, no nausea, vomiting or diarrhea, no hematuria, dysuria, no musculoskeletal complaints, no strokes or seizures, no skin lesions. EXAMINATION: Blood pressure 132/97, heart rate 79-100 beats a minute irregular transfer to [facility] Heart sounds are irregular but normal no murmurs or gallop Breath sounds are clear Abdomen soft nontender REVIEW OF LABS, ECG & MEDICAL DATA Metoprolol 25 mg twice daily and Eliquis 5 milligrams p.o. twice daily Physical Exam Vitals: Intake and Output 12/30/23 12/31/23 12/31/23 22:59 06:59 14:59 Intake Total 100 Balance 100 Intake: IV 100 Past Medical History Past Medical History: Atrial Fibrillation, GERD/Reflux, Hypertension, Syncope Additional Past Medical History / Comment(s): REVIEW H & P PREPARED BY DR. STROUD History of Any Multi-Drug Resistant Organisms: None Reported Past Surgical History: Appendectomy Additional Past Surgical History / Comment(s): COLONOSCOPY Past Anesthesia/Blood Transfusion Reactions: No Reported Reaction Past Psychological History: Anxiety Additional Psychological History / Comment(s): HAS NIGHT TERRORS (WILL SCREAM OUT LOUD, BUT WAKE UP). Smoking Status: Former smoker Past Alcohol Use History: Heavy Additional Past Alcohol Use History / Comment(s): QUIT 7 YRS. 1PPD. Past Drug Use History: None Reported Physical Examination Intake and Output 12/30/23 12/31/23 12/31/23 22:59 06:59 14:59 Intake Total 100 Balance 100 Intake: IV 100 Results Cardiac Enzymes 12/31/23 Range/Units 10:23 AST 36 (17-59) U/L Comprehensive Metabolic Panel 12/31/23 Range/Units 10:23 AST 36 (17-59) U/L ALT 42 (4-49) U/L Current Medications Generic Name Dose Route Start Last Admin Trade Name Freq PRN Reason Stop Dose Admin Sodium Chloride 1,000 mls @ 50 mls/hr 12/31/23 05:40 12/31/23 10:40 Saline 0.9% IV 01/30/24 05:41 100 mls .Q20H [facility] Administration Lactated Ringer's 1,000 mls @ 20 mls/hr 12/31/23 05:40 Lactated Ringers IV 01/30/24 05:41 .Q24H [facility] Intake and Output 12/30/23 12/31/23 12/31/23 22:59 06:59 14:59 Intake Total 100 Balance 100 Intake: IV 100
[2023-12-31] MEDS: HEPARIN SOD,PORK IN 0.45% NACL 25,000 UNIT in 0.45% NACL 1 250ML.BAG IV ONE (12:00)
[2023-12-31] MEDS: LIDOCAINE 1% INJ 10MG/ML (20 ML MDV) SQ ONE (12:10)
[2023-12-31] MEDS: LACTATED RINGERS 1,000 ML IV ONE (14:07)
[2023-12-31] MEDS: IOPAMIDOL-370 100ML BTL INJ ONE (14:08)
[2023-12-31] MEDS ORDERED: ACETAMINOPHEN TAB 325 MG TAB PO PRN (14:29)
--- NOTE | 2023-12-31 14:47 | P.PRLE ---
RE: Block,Ariel Dear Elham Carvajal underwent A-fib ablation with pulmonary vein isolation, left atrial septal ablation and left atrial roof ablation successfully He required electrical cardioversion at the end of the procedure to sinus rhythm Intracardiac echo revealed significant smoke in the left and right atria without any intracardiac mass or thrombus His pericardium was definitely mildly thickened especially at the base of the LV His skin reaction around the eyes is unlikely to be related to any medications I am starting him back on Entresto 24/26 mg p.o. twice daily Metoprolol succinate 25 mg daily in the morning A baby aspirin since he has calcified coronary arteries but with a normal stress test Eliquis 5 mg twice daily And rosuvastatin 20 mg p.o. daily for management of atherosclerotic disease Thank you for entrusting me with the care of the patient Warm regards Sincerely Ryan Stroud
--- NOTE | 2023-12-31 14:51 | P.EPPROC ---
- EP Procedure Note Electrophysiology Procedure Note: PROCEDURE A. fib ablation with PVI, left atrial septal ablation and left atrial roof ablation DIAGNOSIS Cyst atrial fibrillation, symptomatic, refractory to therapy with associated cardiomyopathy RESULT No left atrial appendage mass seen on intracardiac echo, smoke in the left and right atrium Successful A. fib ablation/pulmonary vein isolation of all veins using cryo- ablation Complete entrance block in all 4 veins confirmed Left atrial roof ablation Left atrial septal ablation No evidence for phrenic nerve injury Esophageal deflection YES Electrical cardioversion with a synchronized shock across the chest YES / NO PROCEDURE DETAILS Written informed consent prior to procedure. Patient brought to the EP lab. General anesthesia given. Heparin administered. A city maintained above 300 seconds Both groins prepped and draped per protocol and venous sheaths placed. Esophag us intubated, circa catheter for temperature monitoring an endoscope for possible esophageal deflection. Phrenic nerve monitoring performed. Esophageal temperature monitoring performed. Esophageal deflection performed if circa catheter overlapping with the balloon or circa temperature less than 27.5C Intracardiac echocardiography performed. Pericardium evaluated. Left atrial appendage evaluated. Left atrium evaluated along with pulmonary veins Transseptal catheterization performed under fluoroscopic guidance and intracardiac echo guidance Cryoablation sheath exchanged, balloon catheter along with achieve catheter placed in the left atrium. Pulmonary veins isolated in the following sequence: Left superior pulmonary vein followed by left inferior pulmonary vein, followed by right inferior pulmonary vein and lastly right superior pulmonary vein. Phrenic nerve stimulation along with capture thresholds within the SVC and right superior pulmonary vein to identify the phrenic nerve proximity to the cryo- balloon. Pulmonary veins isolated and confirmed with entrance and exit block. Phrenic nerve integrity confirmed at the end of the procedure Ablation of the left atrial roof performed with sequential lesions from the left superior to the right superior pulmonary veins. Ablation of the electrograms confirmed Ablation of the left atrial septum performed with cannulation of the inferior branch of the right superior vein to achieve ablation of the posterior septum of the left atrium. Ablation of electrograms confirmed Electrical cardioversion performed for persistence of atrial fibrillation despite successful ablation. Diagnostic catheters for the high right atrium, His bundle, coronary sinus placed. LA and RA pressures recorded RA pressure: 18/11/15 LA pressure: 20/8/14 Diagnostic EP study with coronary sinus pacing and recording Baseline measurements: Post cardioversion, in sinus rhythm the AH interval is 101 ms and HV interval was 37 ms Sinus cycle length 1-9 3 ms, KS interval 163 ms, QRS 82 ms and QT interval 376 ms Venous sheaths were removed and hemostasis assured with a closure device. Patient extubated and transferred to recovery Increase procedural time During ablation multiple attempts had to be made to move the esophagus a safe distance of the from the pulmonary vein draining cryoablation, to avoid excessive thermal cooling of the esophagus This took extra time and effort to keep the esophagus a safe distance away from the cryoablation balloon. The patient had a left common pulmonary vein which required multiple extra ablations for complete isolation at the level of the antrum He also underwent left atrial roof ablation. The midportion of the roof was difficult to ablate on account of catheter stability. However with the achieve catheter in the left inferior portion of the pulmonary vein, 6 stable position was achieved with the cryoballoon and complete isolation of the left atrial roof was performed The right inferior pulmonary vein was difficult to isolate on account of proximity to the esophagus and multiple attempts to be made to achieve complete isolation of the veins while keeping a safe distance from the esophagus with esophageal deflection Multiple attempts needed for successful cryoablation isolation of the pulmonary vein PROCEDURES PERFORMED Diagnostic EP study CS pacing and recording Left and right transseptal catheterization Catheter the mapping of the tachycardia Intracardiac echocardiography Pulmonary vein isolation with transseptal and comprehensive EPS, 26225 Extended procedure duration Left atrial roof line, +57142 Linear ablation, left atrium, +40520 Electrical cardioversion with a synchronized shock across the chest [id number]
[2023-12-31] MEDS: LACTATED RINGERS 1,000 ML IV SCH (16:45)
[2023-12-31] MEDS: ATORVASTATIN 40 MG TAB PO SCH (20:01)
[2023-12-31] MEDS: METOPROLOL TARTRATE 25 MG TAB PO SCH (20:01)
[2023-12-31] MEDS: SACUBITRIL/VALSARTAN 24 MG-26 MG TABLET PO SCH (20:01)
[2023-12-31] MEDS: APIXABAN 5 MG TAB PO SCH (20:01)
[2023-12-31 21:08] VITALS: RESP 16
[2024-01-01] MEDS: ACETAMINOPHEN IV (For NPO) 1,000 MG in EMPTY BAG 1 BAG IVPB ONE (04:36)
[2024-01-01] MEDS: FLUoxetine HCL 20 MG CAP PO SCH (07:51)
[2024-01-01 08:17] VITALS: BP 150/90; PULSE 76; TEMP 97.7
--- NOTE | 2024-01-01 09:24 | P.DS ---
Providers Date of admission: 12/31/2023 Attending physician: Ryan Stroud Primary care physician: [facility] Course: The patient is a 73-year-old male who underwent successful pulmonary vein isolation, left atrial roof ablation, and left atrial septal ablation yesterday with Dr. Stroud. Despite extensive ablation, patient remained in atrial fibrillation at the end of the procedure. He underwent electrical cardioversion. Patient was interviewed in room examined resting comfortably in bed. The patient states he did not sleep well overnight but was able to breathe comfortably lying flat. He denies any chest pain. No discomfort in his groins. GENERAL: Well-appearing, well-nourished and in no acute distress. NECK: Supple without JVD or thyromegaly. LUNGS: Breath sounds clear to auscultation bilaterally. Respiration equal and unlabored. No wheezes, rales or rhonchi. HEART: Regular rate and rhythm without murmurs, rubs or gallops. S1 and S2 heard. EXTREMITIES: Normal range of motion, no edema. No clubbing or cyanosis. Peripheral pulses intact and strong. Bilateral groin sites are clean dry and intact. No significant bruising or hematoma noted. TELEMETRY: Sinus rhythm overnight IMPRESSION: Persistent atrial fibrillation Status post pulmonary vein isolation Dilated cardiomyopathy, EF 45% Coronary artery disease PLAN: Continue current cardiac medication regimen Patient may be discharged for outpatient follow-up I am dictating on behalf of Dr Ryan Stroud's history/physical and assessment/plan. Plan - Discharge Summary Discharge Rx Participant: No New Discharge Prescriptions: New Sacubitril/Valsartan [Entresto 24 mg-26 mg Tablet] 1 each PO BID #180 tablet Aspirin EC [Ecotrin Low Dose] 81 mg PO DAILY #90 tab Rosuvastatin [Crestor] 20 mg PO DAILY #90 tablet Metoprolol Succinate [Metoprolol Succinate ER] 25 mg PO DAILY #90 tab Discontinued methylPREDNISolone [Medrol Dose Pack] 1 pack PO DIRECTED Metoprolol Tartrate [Lopressor] 25 mg PO BID #60 tab No Action FLUoxetine HCL [PROzac] 20 mg PO QAM Omeprazole [PriLOSEC] 20 mg PO QAM Apixaban [Eliquis] 5 mg PO BID #60 tab Discharge Medication List FLUoxetine HCL [PROzac] 20 mg PO QAM 10/23/22 [History] Omeprazole [PriLOSEC] 20 mg PO QAM 10/23/22 [History] Apixaban [Eliquis] 5 mg PO BID #60 tab 10/25/22 [Rx] Aspirin EC [Ecotrin Low Dose] 81 mg PO DAILY #90 tab 12/31/23 [Rx] Metoprolol Succinate [Metoprolol Succinate ER] 25 mg PO DAILY #90 tab 12/31/23 [Rx] Rosuvastatin [Crestor] 20 mg PO DAILY #90 tablet 12/31/23 [Rx] Sacubitril/Valsartan [Entresto 24 mg-26 mg Tablet] 1 each PO BID #180 tablet 12/31/23 [Rx] Follow up Appointment(s)/Referral(s): Ryan Stroud MD [STAFF PHYSICIAN] - 1 Week Patient Instructions/Handouts: Cardiac Ablation (DC) Activity/Diet/Wound Care/Special Instructions: Post EP study - Ablation instructions 1. Keep access sites dry for 2 days. 2. No heavy lifting or straining for 2 days. 3. Avoid bending the hips repeatedly for 2 days. 4. You may go up and down stairs slowly Call if the following is noted 1. Bleeding, increasing swelling or pain at the access sites. 2. Increasing chest discomfort, especially upon taking a deep breath. 3. Increasing shortness of breath, at rest or with exertion. 4. Undue cough / phlegm 5. Difficulty or pain while swallowing. 6. Pain or change in color in the extremities. 7. Fever, chills, rigors. 8. Increasing headache or neurologic symptoms. 9. Dizziness, fainting, palpitations Eliquis 5 mg twice daily Baby aspirin 81 mg daily Rosuvastatin 20 mg at dinnertime Metoprolol succinate 25 mg in the morning with breakfast Stop metoprolol to tartrate Resume Entresto 24/26 mg p.o. twice daily Discharge Disposition: HOME SELF-CARE
== END 2024-01-01 12:10 | disposition home or self-care (01) ==
LOC: CATHEP 09:56 → 6NMEDSUR 14:20 → CATHEP 01-01 12:10
PROVIDERS: ATTEND Internal Medicine Clinical Cardiac Electrophysiology
DX: I48.19 Other persistent atrial fibrillation (principal); I11.9 Hypertensive heart disease without heart failure; I25.10 Atherosclerotic heart disease of native coronary artery without angina pectoris; I42.0 Dilated cardiomyopathy; K21.9 Gastro-esophageal reflux disease without esophagitis; F41.9 Anxiety disorder, unspecified; Z79.01 Long term (current) use of anticoagulants; Z79.82 Long term (current) use of aspirin; Z79.899 Other long term (current) drug therapy; Z87.891 Personal history of nicotine dependence
CPT/HCPCS: 93656; 93657; 86900; 86901; 84443; 83735; 84450; 84460; 86850; C1894 ×2; C1769 ×3; C1760; C1730 ×2; C1759; C1893; C1733; C1766; J2001; Q9967; J1644

== ENCOUNTER → 2025-03-07 | Outpatient (CLI) | payer MEDICARE ==
--- NOTE | 2025-03-07 13:55 | CT ---
EXAMINATION TYPE: CT brain wo con DATE OF EXAM: 03/07/2025 COMPARISON: None CLINICAL INDICATION: Male, 74 years old with history of F09.90XA UNSPECIFIED INJURY OF HEAD, INITIAL ENCOU; PH[facility], Fall on thinners CT DLP: 1189 mGycm Automated exposure control for dose reduction was used. Findings: The ventricles, basal cisterns and sulci over the convexities are within normal limits for the patien t's age and there is no mass effect or shift of midline structures. There is moderate diffuse abnormal increased signal intensity in the periventricular white matter con sistent with chronic ischemic white matter demyelination. There is a small remote lacunar infarct in the right centrum semiovale. There is mild basal ganglial calcification. There is no acute intra or extra-axial hemorrhage. The posterior fossa including the brainstem, fourth ventricle and cerebellar pontine angles appear no rmal. Intraorbital contents appear normal and symmetric. There is moderate to marked chronic inflammatory change in the maxillary sinuses and mild chronic rhe umatoid change in the frontal sinus. The mastoid air cells are well aerated. The calvarium is intact. IMPRESSION: 1. No acute bleed or mass effect. 2. Moderate chronic ischemic white matter demyelination. 3. Small remote lacunar infarct in the right centrum semiovale. 4. Basal ganglial calcification. [facility], Workstation: [id number] 03/07/2025 1:52 PM
== END | disposition home or self-care (01) ==
LOC: RADCTMAIN 13:25
PROVIDERS: ATTEND Family Medicine
DX: S09.90XA Unspecified injury of head, initial encounter (principal); G23.8 Other specified degenerative diseases of basal ganglia; I67.82 Cerebral ischemia; Z86.73 Personal history of transient ischemic attack (TIA), and cerebral infarction without residual deficits
CPT/HCPCS: 70450